=== PATIENT | male | born 2005 | race Caucasian/White ===

== ENCOUNTER 2025-02-11 12:25 | Emergency (ER) | payer OTHER, SELFPAY ==
--- NOTE | ~2025-02-11 | CT_ITS ---
CT brain wo con Ordering provider: Edd Izquierdo History: 19 years Male with . head injury, signficant swelling forehead . Comparison: None. Technique: CT of the head without contrast. Radiation reduction technique utilized.The dose-length product was 605.33 mGy-cm. FINDINGS: BRAIN PARENCHYMA AND CSF SPACES: No midline shift, mass effect or hemorrhage. The brain parenchyma a nd CSF spaces are otherwise normal. VISUALIZED PARANASAL SINUSES: Well aerated. MASTOIDS: Well aerated. BONES: The bones appear intact. SOFT TISSUES: Scalp hematoma involving the upper frontal and parietal area. Visualized nasopharynx is normal. Superficial soft tissues are normal. IMPRESSION: No acute intracranial findings. Scalp hematoma involving the frontal and parietal scalp. Reviewed, dictated and finalized at location A.
[2025-02-11 12:29] VITALS: BP 161/106; PULSE 100; RESP 16; TEMP 36.4; O2SAT 100
--- NOTE | 2025-02-11 13:32 | ED_ITS ---
HPI - Head Injury General Chief complaint: Head Injury Stated complaint: Hit head Monday- swolling this AM Time Seen by Provider: 02/11/25 13:37 Source: patient Mode of arrival: ambulatory Limitations: no limitations History of Present Illness HPI Narrative: This is a 19-year-old male from [facility] who presents to the ED for chief complaint of head injury that occurred 3 days ago. Patient states that he has had significant soft tissue swelling developed to the central forehead. States the injury happened to the superior scalp while he was wrestling with his friend. States that he hit his head on the carpet. States that he has had intermittent neck pain but this seems to be improving. Reports intermittent nausea but no vomiting. Denies dizziness, LOC, syncope, numbness, weakness or any further site of injury. Denies use of blood thinners. Related Data Allergies Allergy/AdvReac Type Severity Reaction Status Date / Time hydrocortisone (From Allergy Intermediate Rash Verified 02/11/25 12:27 [place] ([id number])) [facility] Verified 02/11/25 12:27 ([id number])) [facility]yx[facility] B ([facility] Rash Verified 02/11/25 12:27 ([id number])) Review of Systems Review of Systems: All systems as dictated in HPI Exam Narrative: GENERAL: Well-appearing, well-nourished, and in no acute distress. HEAD: Normocephalic, atraumatic. Mild to moderate soft tissue swelling of the central forehead with some edematous swelling. No bruising or hematoma noted. EYES: PERRLA and EOMI. ENT: Nares clear, no rhinorrhea or epistaxis. Mucous membranes moist. Oropharynx without tonsillar hypertrophy exudate or other lesions. Tympanic membranes normal bilaterally. NECK: Supple. No adenopathy or masses. CHEST: No respiratory distress. Clear to auscultation. No wheezes rales or rhonchi HEART: Regular rate and rhythm. No murmur heard. Normal peripheral pulses. ABDOMEN: Soft, nontender, nondistended, normal active bowel sounds. MSK: Normal range of motion. No edema. SKIN: Warm, dry, no rash. NEURO: Alert and oriented x4. No focal deficits. Ambulatory without assistance. PSYCH: Normal mood and affect. Course Vital Signs Vital signs: Vital Signs Temperature 97.6 F 02/11/25 12:29 Pulse Rate 100 02/11/25 12:29 Respiratory Rate 16 02/11/25 12:29 Blood Pressure 161/106 H 02/11/25 12:29 Pulse Oximetry 100 02/11/25 12:29 Temperature 97.6 F 02/11/25 12:29 Pulse Rate 80 02/11/25 15:01 Respiratory Rate 14 02/11/25 15:01 Blood Pressure 136/88 02/11/25 15:01 Pulse Oximetry 98 02/11/25 15:01 MDM - Head Injury MDM Narrative Medical decision making narrative: This is a 19-year-old male who presents to the ED for chief complaint of head injury that occurred several days ago. He has significant swelling to the frontal scalp today. No neurologic deficits. Vitals are normal. CT brain shows frontal scalp hematoma but no acute intracranial findings. Patient will be discharged in stable condition. Supportive measures discussed and return precautions given. Patient is understanding and agreeable with plan for discharge with PCP follow-up. Discharge Plan Discharge Clinical Impression: Closed head injury, Hematoma of frontal scalp Patient Disposition: Home, Self-Care Condition: Stable Instructions: Antibiotic Form, Concussion (ED) Additional Instructions: Exam and imaging today are reassuring overall. Scan does show a scalp hematoma. This should reabsorb over time. Continue with Tylenol as needed for headaches. If you have any new or worsening symptoms please return to the ER for further evaluation. Patient Language: [place] Follow-up/Referrals: PHYSICIAN,LETTER CARRIER [Non-Staff] - Time of Disposition: 14:10
--- NOTE | 2025-02-11 13:48 | PC.NURSE ---
Patient returned to waiting room from CT scan
[2025-02-11 15:01] VITALS: BP 136/88; PULSE 80; RESP 14; O2SAT 98
--- OUTSIDE RECORDS SUMMARY | 2025-02-11 15:50 | XMS_ITS | Clinical Summary ---
Author Organization [facility] Address [address] [place] [address] Phone Care Team Providers Care Baseball Inspector And Repairer Name Role Phone Israel Giron MD Primary Care Provider [phone] Allergies Active Allergy Reactions Criticality Noted Date Comments Miconazole Swelling 04/07/2017 Medications No known medications Social History Tobacco Use Types Packs/Day Years Used Date Smoking Tobacco: Never Sex and Gender Information Value Date Recorded Sex Assigned at Not on file Legal Sex Male 2:46 AM [employer] Gender Identity Not on file Sexual Orientation Not on file Last Filed Vital Signs Vital Sign Reading Time Taken Comments Blood Pressure 122/59 04/07/2017 4:46 PM CDT Pulse 88 04/07/2017 4:46 PM CDT Temperature 36.5 C (97.7 F) 04/07/2017 3:00 PM CDT Respiratory Rate 17 04/07/2017 4:46 PM CDT Oxygen Saturation 99% 04/07/2017 4:46 PM CDT Inhaled Oxygen Concentration - - Weight 61.6 kg (135 lb 12.9 oz) 04/07/2017 3:00 PM CDT Height - - Body Mass Index - - Plan of Treatment Health Maintenance Due Date Last Done Comments Hepatitis C Virus (HCV) Screening 2003 TdaP Immunization 2003 Human Papillomavirus (HPV) Immunization (1 - Male 3-dose series) 2018 Meningococcal B Immunization (1 of 2 - Standard) 2019 Hepatitis B Immunization (1 of 3 - 19+ 3-dose series) 2022 Influenza Immunization (#1) 2024 SARS-COV-2 Immunization ( - 2023-25 season) 2024 Respiratory Syncytial Virus (RSV) Immunization (Adult) (1 - 1-dose 75+ series) 2078 Meningococcal Immunization (ACWY) Aged Out No longer eligible based on patient's age to complete this topic Pneumococcal Immunization Combined Aged Out No longer eligible based on patient's age to complete this topic Rotavirus Immunization Aged Out No lo nger eligible based on patient's age to complete this topic Insurance [facility] Care Teams Baseball Inspector And Repairer Relationship Specialty Start Date End Date Israel Giron MD [address] [place], [place] [id number] PCP - General Family Medicine 04/05/17
== END 2025-02-11 15:01 | disposition home or self-care (01) ==
PROVIDERS: Emergency Provider Physician Assistant
DX: S00.03XA Contusion of scalp, initial encounter (principal); W19.XXXA Unspecified fall, initial encounter
CPT/HCPCS: 70450; 99284